=== PATIENT | female | born 1990 | race Caucasian/White ===

== ENCOUNTER 2019-08-09 11:04 | Emergency (ER) | payer BC ==
[2019-08-09] MEDS ORDERED: Sodium Chloride 0.9% 10 ML Syringe FLUSH PRN (11:13)
[2019-08-09] MEDS ORDERED: Sodium Chloride 0.9% 2.5 ML Syringe FLUSH PRN (11:13)
[2019-08-09] MEDS ORDERED: Sodium Chloride 0.9% 1,000 ML IV ONE (11:13)
[2019-08-09] MEDS ORDERED: Morphine 4 MG/ML Syringe IVPUSH ONE (11:13)
--- NOTE | 2019-08-09 11:19 | EDM.PDOC ---
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 Patient states she was 6 weeks gestation and had an elective medical 4 days ago in [place], [place]. She had taken cytotec and states she had pain for 2 days but resolved yesterday. Today she was sleeping and woke up with severe lower abdominal pain. She has been soaking a super pad every hour since the bleeding started, she states the bleeding cleared yesterday but returned today. She states she is passing small clots, no larger than a quarter. Review of systems: As per history of present illness and below otherwise all systems reviewed and negative. Past medical history: As per history of present illness and as reviewed below otherwise noncontributory. Surgical history: As per history of present illness and as reviewed below otherwise noncontributory. Social history: No reported history of drug or alcohol abuse. Family history: As per history of present illness and as reviewed below otherwise noncontributory. Physical exam: General: Patient sitting comfortably in no acute distress and nontoxic appearing HEENT: Atraumatic, normocephalic, pupils reactive, negative for conjunctival pallor or scleral icterus, mucous membranes moist, throat clear, neck supple, nontender, trachea midline. No meningeal signs. Lungs: Clear to auscultation, breath sounds equal bilaterally, chest nontender. Heart: S1S2, regular, negative for clicks, rubs, or overt murmur. Abdomen: Soft, nondistended, nontender. Negative for masses or hepatosplenomegaly. Negative for costovertebral tenderness. No rigidity, rebound , guarding. Pelvis: Stable nontender. Genitourinary: There is a moderate amount of blood in the vaginal vault with an egg sized clot removed from the cervix Rectal: Deferred. Extremities: Atraumatic, negative for cords or calf pain. Neurovascular unremarkable. Neuro: Awake, alert, oriented. Cranial nerves II through XII unremarkable. Cerebellum unremarkable. Motor and sensory unremarkable throughout. Exam nonfocal. Notes: Discussed findings with Dr. Solano. She advised giving the patient IM methergine and a prescription for this for 2 days as well as a 1g dose of azithromycin. She will follow up with her on of this week. Diagnostics: CBC, CMP, Type and screen, hcg quant, OB US Therapeutics: 1L NS IV 4mg Zofran IV 1mg dilaudid IV Prescriptions: Methergine [place] (#12) Impression: pelvic pain and bleeding status post elective Plan: Take medication as instructed. You may take norco as needed for severe pain, do not take while driving as it may make you drowsy Follow up with Dr. Muro on 08/13, please call the number provided to schedule your appointment Return to the ED as needed as discussed Definitive disposition and diagnosis as appropriate pending reevaluation and review of above. Pelvic Pain Score (Numeric/FACES): 10 - Related Data Allergies Allergy/AdvReac Type Severity Reaction Status Date / Time No Known Allergies Allergy Verified 08/09/19 11:15 Home Meds: Home Meds Dextroamphetamine/Amphetamine [Adderall 10 mg Tablet] 10 mg PO DAILY 08/09/19 [ History] Ibuprofen 800 mg PO DAILY 08/09/19 [History] Methylergonovine [Methergine] 0.2 mg PO Q8HR 2 Days #6 tablet 08/09/19 [Rx] ED ROS GENERAL - Review of Systems Review Of Systems: ROS reveals no pertinent complaints other than HPI. ED EXAM, GI/ABD - Physical Exam Exam: See Below (see dictation) Course - Vital Signs Last Recorded V/S: Last Vital Signs Temp 98.9 F 08/09/19 11:18 Pulse 75 08/09/19 12:01 Resp 22 H 08/09/19 12:01 BP 111/53 L 08/09/19 12:01 Pulse Ox 100 08/09/19 12:01 - Orders/Labs/Meds Orders: Active Orders 24 hr Category Date Time Status Sodium Chloride 0.9% [Saline Flush] Med 08/09/19 11:13 Active 10 ml FLUSH ASDIRECTED PRN Sodium Chloride 0.9% [Saline Flush] Med 08/09/19 11:13 Active 2.5 ml FLUSH ASDIRECTED PRN Saline Lock Insert [OM.PC] Stat Oth 08/09/19 11:13 Ordered Medication Orders Sodium Chloride (Saline Flush) 10 ml FLUSH ASDIRECTED PRN PRN Reason: Keep Vein Open Last Admin: 08/09/19 11:37 Dose: 10 ml Sodium Chloride (Saline Flush) 2.5 ml FLUSH ASDIRECTED PRN PRN Reason: Keep Vein Open Last Admin: 08/09/19 11:38 Dose: 2.5 ml Labs: Laboratory Tests 08/09/19 08/09/19 08/09/19 Range/Units 11:20 11:20 11:20 WBC 10.79 (4.0-11.0) K/uL RBC 4.16 L (4.30-5.90) M/uL Hgb 12.0 (12.0-16.0) g/dL Hct 35.6 L (36.0-46.0) % MCV 85.6 (80.0-98.0) fL MCH 28.8 (27.0-32.0) pg MCHC 33.7 (31.0-37.0) g/dL RDW Std Deviation 45.1 (28.0-62.0) fl RDW Coeff of Dean 15 (11.0-15.0) % Plt Count 219 (150-400) K/uL MPV 10.00 (7.40-12.00) fL Neut % (Auto) 76.5 (48.0-80.0) % Lymph % (Auto) 13.4 L (16.0-40.0) % Starke % (Auto) 8.5 (0.0-15.0) % Eos % (Auto) 1.4 (0.0-7.0) % Baso % (Auto) 0.2 (0.0-1.5) % Neut # (Auto) 8.3 H (1.4-5.7) K/uL Lymph # (Auto) 1.5 (0.6-2.4) K/uL Starke # (Auto) 0.9 H (0.0-0.8) K/uL Eos # (Auto) 0.2 (0.0-0.7) K/uL Baso # (Auto) 0.0 (0.0-0.1) K/uL Nucleated RBC % 0.0 /100WBC Nucleated RBCs # 0 K/uL INR 1.03 Sodium 141 (136-145) mmol/L Potassium 3.9 (3.5-5.1) mmol/L Chloride 105 (98-107) mmol/L Carbon Dioxide 25.8 (21.0-32.0) mmol/L BUN 8 (7.0-18.0) mg/dL Creatinine 0.8 (0.6-1.0) mg/dL Est Cr Clr Drug Dosing 93.37 mL/min Estimated GFR (MDRD) > 60.0 ml/min Glucose 96 (74-106) mg/dL Calcium 9.4 (8.5-10.1) mg/dL Total Bilirubin 0.2 (0.2-1.0) mg/dL AST 15 (15-37) IU/L ALT 23 (14-63) IU/L Alkaline Phosphatase 49 (46-116) U/L Total Protein 6.9 (6.4-8.2) g/dL Albumin 3.6 (3.4-5.0) g/dL Globulin 3.3 (2.6-4.0) g/dL Albumin/Globulin Ratio 1.1 (0.9-1.6) HCG, Quant 10956.0 mIU/mL Blood Type Antibody Screen 08/09/19 Range/Units 11:34 WBC (4.0-11.0) K/uL RBC (4.30-5.90) M/uL Hgb (12.0-16.0) g/dL Hct (36.0-46.0) % MCV (80.0-98.0) fL MCH (27.0-32.0) pg MCHC (31.0-37.0) g/dL RDW Std Deviation (28.0-62.0) fl RDW Coeff of Dean (11.0-15.0) % Plt Count (150-400) K/uL MPV (7.40-12.00) fL Neut % (Auto) (48.0-80.0) % Lymph % (Auto) (16.0-40.0) % Starke % (Auto) (0.0-15.0) % Eos % (Auto) (0.0-7.0) % Baso % (Auto) (0.0-1.5) % Neut # (Auto) (1.4-5.7) K/uL Lymph # (Auto) (0.6-2.4) K/uL Starke # (Auto) (0.0-0.8) K/uL Eos # (Auto) (0.0-0.7) K/uL Baso # (Auto) (0.0-0.1) K/uL Nucleated RBC % /100WBC Nucleated RBCs # K/uL INR Sodium (136-145) mmol/L Potassium (3.5-5.1) mmol/L Chloride (98-107) mmol/L Carbon Dioxide (21.0-32.0) mmol/L BUN (7.0-18.0) mg/dL Creatinine (0.6-1.0) mg/dL Est Cr Clr Drug Dosing mL/min Estimated GFR (MDRD) ml/min Glucose (74-106) mg/dL Calcium (8.5-10.1) mg/dL Total Bilirubin (0.2-1.0) mg/dL AST (15-37) IU/L ALT (14-63) IU/L Alkaline Phosphatase (46-116) U/L Total Protein (6.4-8.2) g/dL Albumin (3.4-5.0) g/dL Globulin (2.6-4.0) g/dL Albumin/Globulin Ratio (0.9-1.6) HCG, Quant mIU/mL Blood Type A POSITIVE Antibody Screen NEGATIVE Meds: Medications Generic Name Dose Route Start Last Admin Trade Name Freq PRN Reason Stop Dose Admin Sodium Chloride 10 ml 08/09/19 11:13 08/09/19 11:37 Saline Flush FLUSH 10 ml ASDIRECTED PRN Administration Keep Vein Open Sodium Chloride 2.5 ml 08/09/19 11:13 08/09/19 11:38 Saline Flush FLUSH 2.5 ml ASDIRECTED PRN Administration Keep Vein Open Discontinued Medications Generic Name Dose Route Start Last Admin Trade Name Freq PRN Reason Stop Dose Admin Azithromycin 1,000 mg 08/09/19 13:02 08/09/19 13:28 Zithromax PO 08/09/19 13:03 1,000 mg NOW STA Administration Hydromorphone HCl 1 mg 08/09/19 11:52 08/09/19 12:00 Dilaudid IVPUSH 08/09/19 11:53 1 mg ONETIME ONE Administration Sodium Chloride 1,000 mls @ 999 mls/hr 08/09/19 11:13 08/09/19 11:33 Normal Saline IV 08/09/19 12:13 999 mls/hr STAT ONE Administration Methylergonovine Maleate 0.2 mg 08/09/19 13:01 08/09/19 13:29 Methergine IM 08/09/19 13:02 Not Given NOW STA Methylergonovine Maleate 0.2 mg 08/09/19 13:25 08/09/19 13:29 Methergine IM 08/09/19 13:26 0.2 mg NOW ONE Administration Morphine Sulfate 4 mg 08/09/19 11:13 08/09/19 11:34 Morphine IVPUSH 08/09/19 11:14 4 mg ONETIME ONE Administration Departure - Departure Time of Disposition: 13:27 Disposition: Home, Self-Care 01 Condition: Good Clinical Impression: Pelvic pain, Status post elective - Discharge Information Prescriptions: Methylergonovine [Methergine] 0.2 mg PO Q8HR 2 Days #6 tablet Referrals: PCP,Unknown [Primary Care Provider] - Forms: ED Department Discharge Additional Instructions: The following information is given to patients seen in the emergency department who are being discharged to home. This information is to outline your options for follow-up care. We provide all patients seen in our emergency department with a follow-up referral. The need for follow-up, as well as the timing and circumstances, are variable depending upon the specifics of your emergency department visit. If you don't have a primary care physician on staff, we will provide you with a referral. We always advise you to contact your personal physician following an emergency department visit to inform them of the circumstance of the visit and for follow-up with them and/or the need for any referrals to a consulting specialist. The emergency department will also refer you to a specialist when appropriate. This referral assures that you have the opportunity for follow-up care with a specialist. All of these measure are taken in an effort to provide you with optimal care, which includes your follow-up. Under all circumstances we always encourage you to contact your private physician who remains a resource for coordinating your care. When calling for follow-up care, please make the office aware that this follow-up is from your recent emergency room visit. If for any reason you are refused follow-up, please contact the [facility] Emergency Department at and asked to speak to the emergency department charge nurse. [facility] [address] [place] [address] Take medication as instructed. You may take norco as needed for severe pain, do not take while driving as it may make you drowsy Follow up with Dr. Muro on 08/13, please call the number provided to schedule your appointment Return to the ED as needed as discussed - My Orders Last 24 Hours: My Active Orders 08/09/19 11:13 Sodium Chloride 0.9% [Saline Flush] 10 ml FLUSH ASDIRECTED PRN Sodium Chloride 0.9% [Saline Flush] 2.5 ml FLUSH ASDIRECTED PRN Saline Lock Insert [OM.PC] Stat - Assessment/Plan Last 24 Hours: My Active Orders 08/09/19 11:13 Sodium Chloride 0.9% [Saline Flush] 10 ml FLUSH ASDIRECTED PRN Sodium Chloride 0.9% [Saline Flush] 2.5 ml FLUSH ASDIRECTED PRN Saline Lock Insert [OM.PC] Stat
[2019-08-09] MEDS ORDERED: HYDROmorphone 1 MG/ML Syringe IVPUSH ONE (11:52)
[2019-08-09 12:19] LABS: BLOOD UREA NITROGEN,BUN 8 mg/dL (7.0-18.0); CARBON DIOXIDE,CO2 25.8 mmol/L (21.0-32.0); CHLORIDE,CL 105 mmol/L (98-107); GLUCOSE RANDOM 96 mg/dL (74-106); POTASSIUM,K 3.9 mmol/L (3.5-5.1); SODIUM,NA 141 mmol/L (136-145)
--- NOTE | 2019-08-09 12:59 | US ---
INDICATION: pelvic pain s/p elective 4 days agoBeta today 13,462 Indication: Pelvic pain. Status post elective 4 days ago. Positive beta HCG. Technique: Pelvic ultrasound. Transabdominal and endovaginal imaging of the pelvis was obtained. Endovaginal imaging of the pelvis was obtained to better evaluate the adnexa and endometrial complex. Color/spectral Doppler was performed to evaluate for ovarian torsion. Comparison: None. Findings: The endometrial complex appears heterogeneous, with significant eccentric vascularity on color Doppler. Findings are suspicious for retained products of conception, and gynecologic consultation is suggested. Differential diagnosis includes a blood clot, which would not explain the significant eccentric vascularity. Right ovary measures 4.6 x 2.2 cm. The left ovary measures 2.3 x 3.4 x 3.7 cm. Normal, low resistance arterial blood flow is preserved to both ovaries on color/spectral Doppler. There is a small amount of fluid in the endometrial canal. The endometrial complex measures up to 26 millimeters in thickness. Uterine corpus measures 13.5 cm in long axis dimension. Impression: 1. Thickened and heterogeneous endometrial complex, with surrounding hypervascularity on color Doppler. 2. Differential diagnosis includes retained products of conception or blood clot. Endometritis is an additional although less likely consideration. 3. Gynecologic consultation is advised. 4. No adnexal mass. 5. Report called to Sean Bell, Emergency Department, 08/09/19, 1256 pm. Dictated by Balaji Alex MD @ 08/09/2019 12:57:47 PM Dictated by: Balaji Alex MD @ 08/09/2019 12:57:57 (Electronically Signed)
[2019-08-09] MEDS ORDERED: Methylergonovine 0.2 MG/1 ML Amp IM STA (13:01)
[2019-08-09] MEDS ORDERED: Azithromycin 250 MG Tab PO STA (13:02)
[2019-08-09] MEDS ORDERED: Methylergonovine 0.2 MG/1 ML Amp IM ONE (13:25)
[2019-08-09] MEDS ORDERED: Methylergonovine 0.2 MG Tab PO ONE (14:35)
== END 2019-08-09 14:58 | disposition home or self-care (01) ==
LOC: MW.ED 11:04
DX: N93.9 Abnormal uterine and vaginal bleeding, unspecified (principal)
CPT/HCPCS: 76817; 80053; 84702; 85025; 85610; 86850; 86900; 86901; 96361; 96372; 96374; 96375; 99284; A9270; J1170; J2210; J2270; J7040

== ENCOUNTER 2019-08-12 06:33 | Day surgery (SDC) | payer BC ==
[~2019-08-12 06:33] MED LIST: Doxycycline 100 MG Cap PO ONE; Sodium Chloride 0.9% 10 ML SDV IV PRN; Sodium Chloride 0.9% 10 ML Syringe FLUSH PRN; Sodium Chloride 0.9% 2.5 ML Syringe FLUSH PRN
[2019-08-12] MEDS ORDERED: Lactated Ringers 1,000 ML IV SCH (07:15)
--- NOTE | 2019-08-12 07:15 | PCM.PREANE ---
Preanesthetic Assessment - Anesthesia/Transfusion/Family Hx Anesthesia History: Prior Anesthesia Without Reaction (dental sedation only) Family History of Anesthesia Reaction: No Transfusion History: No Prior Transfusion(s) - Review of Systems General: No Symptoms Pulmonary: No Symptoms Cardiovascular: No Symptoms Gastrointestinal: No Symptoms Neurological: No Symptoms Other: Reports: None - Physical Assessment Vital Signs: Last Vital Signs Temp 97.9 F 08/12/19 06:40 Pulse 67 08/12/19 06:40 Resp 55 H 08/12/19 06:40 BP 116/55 L 08/12/19 06:40 Pulse Ox 100 08/12/19 06:40 Height: 5 ft 4 in Weight: 64.41 kg ASA Class: 2 Mental Status: Alert & Oriented x3 Airway Class: Mallampati = 2 Dentition: Reports: Normal Dentition ROM/Head Extension: Full Lungs: Clear to Auscultation, Normal Respiratory Effort Cardiovascular: Regular Rate, Regular Rhythm - Allergies Allergies/Adverse Reactions: Allergies Allergy/AdvReac Type Severity Reaction Status Date / Time No Known Allergies Allergy Verified 08/09/19 11:15 - Blood Blood Available: No - Anesthesia Plan Pre-Op Medication Ordered: None - Acknowledgements Anesthesia Type Planned: General Anesthesia Pt an Appropriate Candidate for the Planned Anesthesia: Yes Alternatives and Risks of Anesthesia Discussed w Pt/Guardian: Yes Pt/Guardian Understands and Agrees with Anesthesia Plan: Yes Additional Comments: PMH: incomplete Ab, ADHD PLAN: ga/lma with toradol PreAnesthesia Questionnaire HEENT History: Reports: Other (See Below) Other HEENT History: wears glasses/contacts Cardiovascular History: Reports: Other (See Below) Other Cardiovascular History: murmur as an Respiratory History: Reports: None Gastrointestinal History: Reports: None Genitourinary History: Reports: None 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: , 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 Other OB/BYN History: elective AB 08/06/19 in [facility] Musculoskeletal History: Reports: None Neurological History: Reports: None Psychiatric History: Reports: ADHD Endocrine/Metabolic History: Reports: None Hematologic History: Reports: None Immunologic History: Reports: None Oncologic (Cancer) History: Reports: None Dermatologic History: Reports: None - Infectious Disease History Infectious Disease History: Reports: None - Past Surgical History Head Surgeries/Procedures: Reports: None HEENT Surgical History: Reports: Oral Surgery Cardiovascular Surgical History: Reports: None Respiratory Surgical History: Reports: None GI Surgical History: Reports: None Endocrine Surgical History: Reports: None Neurological Surgical History: Reports: None Musculoskeletal Surgical History: Reports: None Oncologic Surgical History: Reports: None Dermatological Surgical History: Reports: None - SUBSTANCE USE Smoking Status *Q: Current Every Day Smoker Tobacco Use Within Last Twelve Months: Cigarettes - HOME MEDS Home Medications: Home Meds Dextroamphetamine/Amphetamine [Adderall 10 mg Tablet] 10 mg PO DAILY 08/09/19 [ History] Ibuprofen 800 mg PO DAILY 08/09/19 [History] Acetaminophen/HYDROcodone [[place] 325-5 MG] 1 tab PO ASDIRECTED PRN 08/11/19 [ History] Amphetamine/Dextroamphetamine [Adderall XR] 15 mg PO PCLUNCH 08/11/19 [History] Methylergonovine [Methergine] 0.2 mg PO BID 08/11/19 [History] - CURRENT (IN HOUSE) MEDS Current Meds: Current Medications Lactated Ringer's (Ringers, Lactated) 1,000 mls @ 100 mls/hr IV ASDIRECTED FEMI Sodium Chloride (Saline Flush) 10 ml FLUSH ASDIRECTED PRN PRN Reason: Keep Vein Open Sodium Chloride (Saline Flush) 2.5 ml FLUSH ASDIRECTED PRN PRN Reason: Keep Vein Open Sodium Chloride (Normal Saline) 10 ml IV ASDIRECTED PRN PRN Reason: IV Use Discontinued Medications Doxycycline Hyclate (Vibramycin) 100 mg PO ONETIME ONE Stop: 08/12/19 05:01 Last Admin: 08/12/19 07:00 Dose: 100 mg
[2019-08-12] MEDS ORDERED: Midazolam 1 MG/ML 2 ML SDV ONE (07:23)
[2019-08-12] MEDS ORDERED: fentaNYL 100 MCG/2 ML SDV ONE (07:25)
[2019-08-12] MEDS ORDERED: Lidocaine 2% 5 ML SDV ONE (07:28)
[2019-08-12] MEDS ORDERED: Misoprostol 200 MCG Tab ONE ×2 (07:28→07:42)
[2019-08-12] MEDS ORDERED: Propofol 200 MG/20 ML SDV ONE (07:29)
[2019-08-12] MEDS ORDERED: Ketorolac 30 MG/ML SDV ONE (08:03)
[2019-08-12] MEDS ORDERED: ePHEDrine 50 MG/ML SDV ONE (08:20)
[2019-08-12] MEDS ORDERED: Ondansetron 4 MG/2 ML SDV ONE (08:27)
--- NOTE | 2019-08-12 08:34 | PCM.OPNOTE ---
- General Post-Op/Procedure Note Date of Surgery/Procedure: 08/12/19 Operative Procedure(s): Suction dilation and curettage Findings: Pre-operative bimanual exam: Uterus 9-10 week size, anteverted. Intraoperative: Small amount of blood and clot evacuated. Post-operative bimanual exam: Uterus 6-7 week size. Pre Op Diagnosis: Incomplete Post-Op Diagnosis: Complete Anesthesia Technique: General LMA Primary Surgeon: Niurka Flores Anesthesia Provider: Mike Motnoya Pathology: Products of conception EBL in mLs: 30 Complications: None Condition: Stable
--- NOTE | 2019-08-12 09:03 | PCM.POSTAN ---
POST ANESTHESIA ASSESSMENT - MENTAL STATUS Mental Status: Alert, Oriented - VITAL SIGNS Vital Signs: Last Vital Signs Temp 36.8 C 08/12/19 08:42 Pulse 89 08/12/19 08:57 Resp 18 08/12/19 08:57 BP 119/70 08/12/19 08:57 Pulse Ox 95 08/12/19 08:57 - RESPIRATORY Respiratory Status: Respiratory Rate WNL - CARDIOVASCULAR CV Status: Pulse Rate WNL - GASTROINTESTINAL GI Status: No Symptoms - POST OP HYDRATION Hydration Status: Adequate & Stable - OBSERVATIONS Free Text/Narrative:: Patient Stable.
--- NOTE | 2019-08-12 15:04 | OR ---
SURGEON: Niurka Flores MD DATE OF PROCEDURE: 08/12/2019 PREOPERATIVE DIAGNOSES: A 28-year-old with incomplete at roughly 6 weeks of gestation. POSTOPERATIVE DIAGNOSES: A 28-year-old with incomplete at roughly 6 weeks of gestation. PROCEDURE: Suction dilation and curettage. PRIMARY SURGEON: Niurka Flores MD. ANESTHESIA PROVIDER: Dr. Mike galeas. ANESTHESIA: LMA. COMPLICATIONS: None. ESTIMATED BLOOD LOSS: 30 mL. FLUIDS: 1 L LR. URINE OUTPUT: Bladder drained prior to procedure. SPECIMEN: Products of conception. FINDINGS: Preoperative bimanual exam, 9-10 week anteverted uterus. A small amount of products of conception. Postoperative exam, 6 to 7 weeks uterus. PROCEDURE IN DETAIL: The patient was taken to operating room where LMA was obtained. She was placed in the dorsal lithotomy position in Zeyad type stirrups. Exam under anesthesia revealed a 9 to 10 week size anteverted uterus with the cervix dilated. The patient was prepared and draped in normal sterile fashion. A speculum was inserted into the vagina. An Allis clamp was used to grasp the anterior lip of the cervix. The uterus was sounded to 9 cm. The cervix was already dilated, however, Hegar dilators were used to ensure that the size 7 suction curette would adequately fit. A 7 mm suction curette was advanced to the uterine fundus. Suction was then started. The products of conception were evacuated with curette rotating on the outward movement. Gentle sharp curettage was then performed with a medium curette. The suction curette was then reintroduced to clear the uterus. The Allis was removed from the cervix and good hemostasis was noted. The patient tolerated procedure well. The patient was taken to recovery room in stable condition. [id number] / MODL /[id number]
== END 2019-08-12 11:15 | disposition home or self-care (01) ==
LOC: MW.SDS 06:33
PROVIDERS: ATTEND Obstetrics & Gynecology
DX: O03.4 Incomplete spontaneous abortion without complication (principal); N85.8 Other specified noninflammatory disorders of uterus; F90.9 Attention-deficit hyperactivity disorder, unspecified type; F17.210 Nicotine dependence, cigarettes, uncomplicated; Z79.1 Long term (current) use of non-steroidal anti-inflammatories (NSAID)
CPT/HCPCS: 36415; 59812; 86850; 86900; 86901; 88305; A9270; J1885; J2001; J2250; J2405; J2704; J3010; J7120